=== PATIENT | male | born 1990 | race African-American/Black ===

== ENCOUNTER 2021-03-01 02:26 | Emergency (ER) | payer MEDICAID ==
[~2021-03-01] VITALS: Ht 177.8 cm; Wt 95.5 kg
[2021-03-01 02:28] VITALS: Ht 177.8 cm; Wt 95.5 kg
[2021-03-01 03:04] LABS: BASOPHILS 0.1 % (0-2); EOSINOPHILS 0.3 % (0-7); IMMATURE GRANULOCYTES 0.2 % (0-5); LYMPHOCYTE ABS# 1.32 10x3/uL (1.32-3.57); LYMPHOCYTES 9.4 % (15-50); MCH 27.9 pg (26.0-34.0); MCHC 33.3 g/dL (31.0-37.0); MCV 83.6 fL (80.0-100.0); MEAN PLATELET VOLUME 9.8 fL (7.4-10.4); MONOCYTES 7.6 % (2-11); NEUTROPHIL ABS# 11.54 10x3/uL (1.78-5.38); NEUTROPHILS 82.4 % (40-80); PLATELET COUNT 316 10x3/uL (130-400); RBC 3.23 10x6/uL (4.20-6.10); RDW 16.4 % (11.5-14.5)
[2021-03-01 03:11] LABS: CALC OSMOLALITY 270 mosm/kg (275-300); CALCIUM 8.7 mg/dL (8.5-10.1); CARBON DIOXIDE 27.9 mmol/L (21.0-32.0); CHLORIDE - SERUM 101 mmol/L (98-107); CREATININE - SERUM 0.7 mg/dL (0.6-1.3); GLUCOSE 100 mg/dL (74-106); POTASSIUM - SERUM 4.1 mmol/L (3.5-5.1); SODIUM 136 mmol/L (136-145); UREA NITROGEN 9 mg/dL (7-18); eGFR NON AFRICAN AMERICAN > 90 mL/min (90-120)
[2021-03-01 03:17] LABS: ALBUMIN 2.4 g/dL (3.4-5.0); ALKALINE PHOSPHATASE 79 U/L (30-120); ALT (SGPT) 15 U/L (10-68); BILIRUBIN - TOTAL 0.43 mg/dL (0.2-1.3); PROTEIN - SERUM 6.5 g/dL (6.4-8.2)
[2021-03-01 03:55] LABS: BILIRUBIN NEGATIVE (NEGATIVE); KETONE NEGATIVE (NEGATIVE); NITRITE NEGATIVE (NEGATIVE); UROBILINOGEN NORMAL mg/dL (< 2)
[2021-03-01 03:56] LABS: BACTERIA FEW HPF (NONE SEEN); SQUAMOUS EPITHELIAL 0-5 HPF (0-4)
[2021-03-01] MEDS ORDERED: OMNICEF300 MG PO (04:12)
[2021-03-01 06:02] VITALS: BP 99/55
== END 2021-03-01 06:03 ==
LOC: D.ER 02:26
PROVIDERS: Family Medicine
DX: N39.0 Urinary tract infection, site not specified (principal); G82.20 Paraplegia, unspecified; L89.154 Pressure ulcer of sacral region, stage 4; G62.9 Polyneuropathy, unspecified

== ENCOUNTER 2021-03-26 06:43 | Day surgery (SDC) | payer MEDICAID ==
[~2021-03-26] VITALS: Ht 177.8 cm; Wt 90.9 kg
--- NOTE | ~2021-03-26 | HP ---
PATIENT: AKHIL AREVALO MEDICAL RECORD: [id number] ACCOUNT: [id number] LOCATION:[facility] : 86 ADMISSION DATE: 03/26/21 PCP: No PCP HISTORY AND PHYSICAL EXAMINATION The patient has metastatic lung cancer. He has poor IV access. The port is for blood draws as well as infusion of medications. The risks, possible complications, and alternatives of the procedure were explained to the patient. He elects to proceed. The discussion specifically included, but was not limited to, bleeding requiring emergency reoperation, infection, port flip or could clot off and become nonfunctional. The patient is a poor historian. TRANSINT:[id number] Voice Confirmation ID: [id number] DOCUMENT ID: [id number] AD SPANN MD CC: JESÚS GUERRERO MD and LEWIS AKERS [id number] DICTATION DATE: 03/26/21 0951 MANAGER MEETING: 03/26/21 1011 [id number] [place] [address]
[~2021-03-26 06:43] MED LIST: OMNICEF300 MG PO
[2021-03-26] MEDS ORDERED: COLACE100 MG (09:32)
[2021-03-26] MEDS ORDERED: ONDANSETRON HCL8 MG (09:32)
[2021-03-26] MEDS ORDERED: FERROUS SULFAT325 MG (09:33)
[2021-03-26] MEDS ORDERED: IBUPROFEN200 MG (09:33)
[2021-03-26] MEDS ORDERED: HYDROCODON-ACE1 EAC7 (09:33)
[2021-03-26] MEDS ORDERED: LIDODERM 5 %1 PATCH (09:34)
[2021-03-26] MEDS ORDERED: ELIQUIS5 MG (09:34)
[2021-03-26] MEDS ORDERED: BACLOFEN10 MG (09:35)
[2021-03-26] MEDS ORDERED: VITAMIN C500 M1 (09:35)
[2021-03-26] MEDS ORDERED: GABAPENTIN300 MG (09:35)
[2021-03-26 10:02] VITALS: BP 135/96; Ht 177.8 cm; Wt 90.9 kg
[2021-03-26 10:53] LABS: BASOPHILS 0.2 % (0-2); EOSINOPHILS 0.7 % (0-7); HEMATOCRIT 36.3 % (42.0-54.0); HEMOGLOBIN 12.5 g/dL (13.5-17.5); IMMATURE GRANULOCYTES 0.3 % (0-5); LYMPHOCYTE ABS# 1.35 10x3/uL (1.32-3.57); LYMPHOCYTES 14.3 % (15-50); MCH 28.2 pg (26.0-34.0); MCHC 34.4 g/dL (31.0-37.0); MCV 81.8 fL (80.0-100.0); MEAN PLATELET VOLUME 11.1 fL (7.4-10.4); MONOCYTES 8.1 % (2-11); NEUTROPHIL ABS# 7.22 10x3/uL (1.78-5.38); NEUTROPHILS 76.4 % (40-80); PLATELET COUNT 254 10x3/uL (130-400); RBC 4.44 10x6/uL (4.20-6.10); WBC 9.5 10x3/uL (4.8-10.8)
[2021-03-26 10:59] LABS: APTT 32.2 SECONDS (22.8-39.4); INR 1.17 (0.85-1.17); PROTIME 13.8 SECONDS (11.6-15.0)
--- NOTE | 2021-03-26 14:15 | NUR ---
DC INSTRUCTIONS GIVEN TO PT. STATES UNDERSTANDING. DC'D IV CATH FULLY INTACT. WILL DC SHORTLY.
--- NOTE | 2021-03-26 14:32 | NUR ---
EMPTIED BOONE BAG 1800 ML OUT. PT LEFT UNIT VIA WC AT 1432
== END 2021-03-26 14:32 | disposition home or self-care (01) ==
LOC: D.OPS 06:43
PROVIDERS: Anesthesiology; ATTEND Internal Medicine
DX: C34.90 Malignant neoplasm of unspecified part of unspecified bronchus or lung (principal); L89.154 Pressure ulcer of sacral region, stage 4; G82.20 Paraplegia, unspecified; N39.0 Urinary tract infection, site not specified; C79.51 Secondary malignant neoplasm of bone; C79.31 Secondary malignant neoplasm of brain